=== PATIENT | male | born 1950 | race Caucasian/White ===

== ENCOUNTER 2017-05-05 20:30 | Outpatient (CLI) | payer MEDICARE, OTHER | END 2017-05-06 06:09 | disposition home or self-care (01) | LOC: SLEEP 20:30 | PROVIDERS: ATTEND Nurse Practitioner Family | DX: G47.33 Obstructive sleep apnea (adult) (pediatric) (principal); R06.83 Snoring | CPT/HCPCS: 95810 ==

== ENCOUNTER 2017-08-04 19:50 | Outpatient (CLI) | payer MEDICARE, OTHER | END 2017-08-05 07:00 | disposition home or self-care (01) | LOC: SLEEP 19:50 | PROVIDERS: ATTEND Nurse Practitioner Family | DX: G47.33 Obstructive sleep apnea (adult) (pediatric) (principal) | CPT/HCPCS: 95811 ==

== ENCOUNTER 2017-09-03 21:06 | Outpatient (CLI) | payer MEDICARE, OTHER | END 2017-09-04 06:10 | disposition home or self-care (01) | LOC: SLEEP 21:06 | PROVIDERS: ATTEND Otolaryngology Otolaryngology/Facial Plastic Surgery | DX: G47.33 Obstructive sleep apnea (adult) (pediatric) (principal) | CPT/HCPCS: 95811 ==